=== PATIENT | male | born 1960 | race Caucasian/White ===

== ENCOUNTER 2016-10-26 09:45 | Inpatient (IN) | payer OTHER ==
[2016-10-26 10:08] VITALS: BMI 21.8
--- NOTE | 2016-10-26 12:57 | HP ---
CIWA Score - CIWA Score Nausea/Vomitin Muscle Tremors: 4-Moderate,w/Arms Extend Anxiety: 4-Mod. Anxious/Guarded Agitation: 3 Paroxysmal Sweats: No Perspiration Orientation: 0-Oriented Tacttile Disturbances: 0-None Auditory Disturbances: 0-None Visual Disturbances: 0-None Headache: 0-None Present CIWA-Ar Total Score: 14 Admission ROS BHS - HPI Chief Complaint: WITHDRAWAL SX. Allergies/Adverse Reactions: Allergies Allergy/AdvReac Type Severity Reaction Status Date / Time No Known Allergies Allergy Verified 10/26/16 11:11 History of Present Illness: 56 Y/O MAN WITH A LONG HX. OF ALCOHOLISM IS ADMITTED FOR DETOX. PT. DENIES PREVIOUS DETOX,REPORTS 1 YR. SOBER. Exam Limitations: No Limitations - Ebola screening Have you traveled outside of the country in the last 21 days: No (N) Have you had contact with anyone from an Ebola affected area: No Have you been sick,other than usual withdrawal symptoms: No Do you have a fever: No - Review of Systems Constitutional: No Symptoms Reported EENT: reports: No Symptoms Reported Respiratory: reports: Productive cough Cardiac: reports: No Symptoms Reported GI: reports: Nausea, Vomiting (LAST NIGHT) : reports: Frequency Musculoskeletal: reports: Back Pain Integumentary: reports: No Symptoms Reported Neuro: reports: Tremors Endocrine: reports: No Symptoms Reported Hematology: reports: No Symptoms Reported Psychiatric: reports: No Sypmtoms Reported Other Systems: Reviewed and Negative Patient History - Patient Medical History Hx Anemia: No Hx Asthma: No Hx Chronic Obstructive Pulmonary Disease (COPD): No Hx Cancer: No Hx Cardiac Disorders: No Hx Congestive Heart Failure: No Hx Hypertension: No Hx Hypercholesterolemia: No Hx Pacemaker: No HX Cerebrovascular Accident: No Hx Seizures: No Hx Dementia: No Hx Diabetes: No Hx Gastrointestinal Disorders: No Hx Liver Disease: No Hx Genitourinary Disorders: No Hx Sexually Transmitted Disorders: No Hx Renal Disease (ESRD): No Hx Thyroid Disease: No Hx Human Immunodeficiency Virus (HIV): No Hx Hepatitis C: No Hx Depression: No Hx Suicide Attempt: Yes (SUMMER 2015,OD) Hx Bipolar Disorder: Yes Hx Schizophrenia: No - Patient Surgical History Past Surgical History: No Hx Neurologic Surgery: No Hx Cataract Extraction: No Hx Cardiac Surgery: No Hx Lung Surgery: No Hx Breast Surgery: No Hx Breast Biopsy: No Hx Abdominal Surgery: No Hx Appendectomy: No Hx Cholecystectomy: No Hx Genitourinary Surgery: No Hx Section: No Hx Orthopedic Surgery: No Anesthesia Reaction: No - PPD History Previous Implant?: Yes Documented Results: Negative w/o proof Implanted On Prior [facility] Admission?: No PPD to be Administered?: Yes - Smoking Cessation Smoking history: Never smoked Have you smoked in the past 12 months: No - Substance & Tx. History Hx Alcohol Use: Yes Hx Substance Use: No Substance Use Type: Alcohol Hx Substance Use Treatment: No - Substances Abused Alcohol Route: Oral Frequency: Daily Amount used: BEER 1-2(6 PACKS) Age of first use: 17 Date of Last Use: 10/26/16 Family Disease History - Family Disease History Family Disease History: Other: Father (ALCOHOLISM) Admission Physical Exam [facility] - Vital Signs Vital Signs: Vital Signs - 24 hr 10/26/16 10:06 Temperature 97.2 F L Pulse Rate 105 H Respiratory 18 Rate Blood Pressure 126/79 - Physical General Appearance: Yes: Alcohol on Breath, Tremorous, Irritable, Sweating, Anxious HEENTM: Yes: Rhinorrhea Respiratory: Yes: Chest Non-Tender, Lungs Clear, Normal Breath Sounds Neck: Yes: Supple Breast: Yes: Breast Exam Deferred Cardiology: Yes: Regular Rhythm, Regular Rate, S1, S2 Abdominal: Yes: Normal Bowel Sounds, Non Tender, Flat, Soft Genitourinary: Yes: Frequency Back: Yes: Within Normal Limits Musculoskeletal: Yes: Back pain Extremities: Yes: Tremors Neurological: Yes: Fully Oriented, Alert Integumentary: Yes: Within Normal Limits Lymphatic: Yes: Within Normal Limits - Diagnostic (1) Alcohol dependence with uncomplicated withdrawal Current Visit: Yes Status: Acute Cleared for Admission [facility] - Detox or Rehab [facility] Level of Care: Medically Managed Detox Regimen/Protocol: Librium [facility] Breath Alcohol Content Breath Alcohol Content: 0.064 Urine Drug Screen - Results Drug Screen Negative: Yes
[2016-10-26] MEDS ORDERED: LOPERAMIDE HCL 2 MG CAPSULE PO PRN (13:07)
[2016-10-26] MEDS ORDERED: MENTHOL/PHENOL 1 EACH UD MM PRN (13:07)
[2016-10-26] MEDS ORDERED: hydrOXYzine PAMOATE 50 MG CAPSULE (FP) PO PRN (13:07)
[2016-10-26] MEDS ORDERED: MAGNESIUM CITRATE 300 ML BOTTLE PO PRN (13:07)
[2016-10-26] MEDS ORDERED: MAGNESIUM HYDROX 2400MG/30ML ORAL SUSPENSION 30 ML CUP PO PRN (13:07)
[2016-10-26] MEDS ORDERED: MAG HYDROX/AL HYDROX/SIMETH 30 ML UNIT-DOSE CUP PO PRN (13:07)
[2016-10-26] MEDS ORDERED: chlordiazePOXIDE HCL 25 MG CAPSULE PO PRN (13:07)
[2016-10-26] MEDS ORDERED: P-EPHED 60MG/TRIPROLIDI 2.5MG TABLET PO PRN (13:07)
[2016-10-26] MEDS ORDERED: ACETAMINOPHEN 325 MG TABLET (FP) PO PRN (13:07)
[2016-10-26] MEDS ORDERED: diphenhydrAMINE HCL 50 MG CAPSULE PO PRN (13:07)
[2016-10-26] MEDS ORDERED: chlordiazePOXIDE HCL 25 MG CAPSULE PO ONE (13:45)
[2016-10-26 15:05] LABS: URINE APPEARANCE CLEAR; URINE BILIRUBIN NEGATIVE (NEGATIVE); URINE BLOOD NEGATIVE (NEGATIVE); URINE COLOR LTYELLOW; URINE GLUCOSE (UA) 1+ (NEGATIVE); URINE KETONE NEGATIVE (NEGATIVE); URINE LEUK ESTERASE NEGATIVE (NEGATIVE); URINE NITRITE NEGATIVE (NEGATIVE); URINE PROTEIN NEGATIVE (NEGATIVE); URINE UROBILINOGEN NEGATIVE E.U./dl (0.2-1.0)
[2016-10-26] MEDS: chlordiazePOXIDE HCL 25 MG CAPSULE PO SCH ×2 (17:16→22:18)
[2016-10-26] MEDS: ONDANSETRON *ODT* 4 MG TABLET SL PRN (17:52)
[2016-10-26] MEDS: THIAMINE HCL 100 MG TABLET (FP) PO SCH (22:18)
[2016-10-26] MEDS: IBUPROFEN 400 MG TABLET (FP) PO PRN (22:19)
[2016-10-27] MEDS: chlordiazePOXIDE HCL 25 MG CAPSULE PO SCH ×4 (05:34→22:13)
--- NOTE | 2016-10-27 10:21 | PN ---
S CIWA - CIWA Score Nausea/Vomitin-No Nausea/No Vomiting Muscle Tremors: 4-Moderate,w/Arms Extend Anxiety: 4-Mod. Anxious/Guarded Agitation: 4-Moderately Restless Paroxysmal Sweats: 1-Minimal Palms Moist Orientation: 0-Oriented Tacttile Disturbances: 3-Moderate Itch/Numb/Burn Auditory Disturbances: 0-None Visual Disturbances: 0-None Headache: 0-None Present CIWA-Ar Total Score: 16 BHS Progress Note (SOAP) Subjective: ANXIETY,SWEATS/TREMORS. Objective: 10/27/16 10:20 Vital Signs Temperature 96.8 F L 10/27/16 09:31 Pulse Rate 88 10/27/16 09:31 Respiratory Rate 18 10/27/16 09:31 Blood Pressure 124/82 10/27/16 09:31 O2 Sat by Pulse Oximetry (%) Laboratory Last Values Urine Color Ltyellow 10/26/16 14:00 Urine Appearance Clear 10/26/16 14:00 Urine pH 6.0 (5.0-8.0) 10/26/16 14:00 Ur Specific [place] 1.003 (1.001-1.035) 10/26/16 14:00 Urine Protein Negative (NEGATIVE) 10/26/16 14:00 Urine Glucose (UA) 1+ (NEGATIVE) H 10/26/16 14:00 Urine Ketones Negative (NEGATIVE) 10/26/16 14:00 Urine Blood Negative (NEGATIVE) 10/26/16 14:00 Urine Nitrite Negative (NEGATIVE) 10/26/16 14:00 Urine Bilirubin Negative (NEGATIVE) 10/26/16 14:00 Urine Urobilinogen Negative E.U./dl (0.2-1.0) 10/26/16 14:00 Ur Leukocyte Esterase Negative (NEGATIVE) 10/26/16 14:00 Assessment: 10/27/16 10:20 WITHDRAWAL SX Plan: CONTINUE DETOX
[2016-10-27] MEDS: PRENATAL VITAMINS W/ FOLIC ACID TABLET (FP) PO SCH (10:22)
[2016-10-27] MEDS: IBUPROFEN 400 MG TABLET (FP) PO PRN ×2 (10:23→19:39)
[2016-10-27 10:26] LABS: MCH 38.4 pg (25.7-33.7); MEAN PLT VOLUME 8.1 fl (7.5-11.1); PLATELET COUNT 141 K/MM3 (134-434); RDW 12.3 % (11.9-15.9); WHITE BLOOD COUNT 6.6 K/mm3 (4.0-10.0)
--- NOTE | 2016-10-27 10:28 | CONSULT ---
[facility] Psychiatric Consult - Data Date of interview: 10/27/16 Admission source: [facility] Identifying data: This is the first admission to [address] [place] [address] for this 56 years old male father of 19 yo daughter,resides [place] Hotel, unemployed,lost his job 4 years ago. Substance Abuse History: Patient reports drinking since 17 years old,reports 1 year of abstinence.Currently heavy drinking (6 packs of beer,Tequila). Medical History: unremarkable Psychiatric History: Reports psychiatric history since 3 years ago ,when he started to see Psych Nurse Practioner.He was dx with Bipolar II Disorder.He was placed on lamictal 25 mg po 2 tab am,Trazodone 150 mg po hs and Neurontin 300 mg po 2 tab hs and Risperidone ),5 mg po bid.Reports one suicidal attempt (DOD) last summer under influence of alcohol.patient was in ER,d/c without meds and follow up.Sees private psychiatrist at [facility],still on the same medications. Physical/Sexual Abuse/Trauma History: denies Mental Status Exam - Mental Status Exam Alert and Oriented to: Time, Place, Person Cognitive Function: Grossly Intact Patient Appearance: Well Groomed Mood: Depressed, Sad Affect: Mood Congruent Patient Behavior: Cooperative Speech Pattern: Clear Voice Loudness: Normal Thought Process: Goal Oriented Thought Disorder: Not Present Hallucinations: Denies Suicidal Ideation: Denies Homicidal Ideation: Denies Insight/Judgement: Fair Sleep: Fair Appetite: Good Muscle strength/Tone: Normal Gait/Station: Normal Psychiatric Findings - Problem List ([place] 1, 2,3) (1) Alcohol dependence with uncomplicated withdrawal Current Visit: Yes Status: Chronic (2) Bipolar II disorder Current Visit: Yes Status: Acute - Initial Treatment Plan Initial Treatment Plan: Continue current medications as per plan.
--- NOTE | 2016-10-27 10:47 | PN ---
[facility] CIWA - CIWA Score Nausea/Vomitin Muscle Tremors: 4-Moderate,w/Arms Extend Anxiety: 4-Mod. Anxious/Guarded Agitation: 4-Moderately Restless Paroxysmal Sweats: 1-Minimal Palms Moist Orientation: 0-Oriented Tacttile Disturbances: 3-Moderate Itch/Numb/Burn Auditory Disturbances: 0-None Visual Disturbances: 0-None Headache: 0-None Present CIWA-Ar Total Score: 21 BHS Progress Note (SOAP) Subjective: NAUSEA/VOMITING,TREMORS,ANXIETY. Objective: 10/27/16 10:47 Vital Signs Temperature 96.8 F L 10/27/16 09:31 Pulse Rate 88 10/27/16 09:31 Respiratory Rate 18 10/27/16 09:31 Blood Pressure 124/82 10/27/16 09:31 O2 Sat by Pulse Oximetry (%) Laboratory Last Values WBC 6.6 K/mm3 (4.0-10.0) 10/27/16 06:30 RBC 3.19 M/mm3 (4.00-5.60) L 10/27/16 06:30 Hgb 12.3 GM/dL (11.7-16.9) 10/27/16 06:30 Hct 36.1 % (35.4-49) 10/27/16 06:30 MCV 113.0 fl (80-96) H 10/27/16 06:30 MCHC 34.0 g/dl (32.0-35.9) 10/27/16 06:30 RDW 12.3 % (11.9-15.9) 10/27/16 06:30 Plt Count 141 K/MM3 (134-434) 10/27/16 06:30 MPV 8.1 fl (7.5-11.1) 10/27/16 06:30 Sodium 139 mmol/L (136-145) 10/27/16 06:30 Potassium 3.5 mmol/L (3.5-5.1) 10/27/16 06:30 Chloride 101 mmol/L (98-107) 10/27/16 06:30 Urine Color Ltyellow 10/26/16 14:00 Urine Appearance Clear 10/26/16 14:00 Urine pH 6.0 (5.0-8.0) 10/26/16 14:00 Ur Specific [place] 1.003 (1.001-1.035) 10/26/16 14:00 Urine Protein Negative (NEGATIVE) 10/26/16 14:00 Urine Glucose (UA) 1+ (NEGATIVE) H 10/26/16 14:00 Urine Ketones Negative (NEGATIVE) 10/26/16 14:00 Urine Blood Negative (NEGATIVE) 10/26/16 14:00 Urine Nitrite Negative (NEGATIVE) 10/26/16 14:00 Urine Bilirubin Negative (NEGATIVE) 10/26/16 14:00 Urine Urobilinogen Negative E.U./dl (0.2-1.0) 10/26/16 14:00 Ur Leukocyte Esterase Negative (NEGATIVE) 10/26/16 14:00 OTHR LAB RESULTS PENDING Assessment: 10/27/16 10:47 WITHDRAWAL SX Plan: CONTINUE DETOX
[2016-10-27 10:53] LABS: ALBUMIN 3.4 g/dl (3.4-5.0); ALK PHOS 72 U/L (45-117); ANION GAP 8 (8-16); BILIRUBIN,TOTAL 1.1 mg/dL (0.2-1.0); CALCIUM 8.9 mg/dL (8.5-10.1); CO2 30 mmol/L (21-32); CREATININE 0.7 mg/dL (0.7-1.3); GLUCOSE,RANDOM 86 mg/dL (74-106); SGOT/AST 29 U/L (15-37); SGPT/ALT 29 U/L (12-78); TOT PROT 6.2 g/dl (6.4-8.2)
[2016-10-27] MEDS: lamoTRIgine 25 MG TABLET PO SCH (12:00)
--- NOTE | 2016-10-27 16:25 | EKG ---
Test Reason : Blood Pressure : / mmHG Vent. Rate : 090 BPM Atrial Rate : 090 BPM P-R Int : 146 ms QRS Dur : 100 ms QT Int : 374 ms P-R-T Axes : 034 032 032 degrees QTc Int : 457 ms NORMAL SINUS RHYTHM NORMAL ECG NO PREVIOUS ECGS AVAILABLE Confirmed by FOREIGN ROMO MD ([id number]) on 10/27/2016 4:24:42 PM Referred By: Confirmed By:FOREIGN ROMO MD
[2016-10-27] MEDS ORDERED: GABAPENTIN 300 MG CAPSULE (FP) PO SCH ×2 (22:00)
[2016-10-27] MEDS: GABAPENTIN 300 MG CAPSULE (FP) PO SCH (22:13)
[2016-10-27] MEDS: risperiDONE 1 MG TABLET (FP) PO SCH (22:13)
[2016-10-27] MEDS: THIAMINE HCL 100 MG TABLET (FP) PO SCH (22:13)
[2016-10-27] MEDS: traZODone HCL 50 MG TABLET (FP) PO SCH (22:14)
[2016-10-28] MEDS: chlordiazePOXIDE HCL 25 MG CAPSULE PO SCH ×2 (05:39→10:26)
--- NOTE | 2016-10-28 10:23 | PN ---
BHS Progress Note (SOAP) Subjective: ANXIETY,TREMORS, SWEATS, INTERMITTENT SLEEP Objective: 10/28/16 10:22 Vital Signs Temperature 95.3 F L 10/28/16 10:21 Pulse Rate 100 H 10/28/16 10:21 Respiratory Rate 20 10/28/16 10:21 Blood Pressure 115/75 10/28/16 10:21 O2 Sat by Pulse Oximetry (%) Assessment: 10/28/16 10:23 WITHDRAWAL SX Plan: CONTINUE DETOX
[2016-10-28] MEDS: lamoTRIgine 25 MG TABLET PO SCH (10:26)
[2016-10-28] MEDS: PRENATAL VITAMINS W/ FOLIC ACID TABLET (FP) PO SCH (10:26)
[2016-10-28] MEDS: guaiFENesin/D-METHORPHAN HB 10 ML UNIT-DOSE CUPS PO PRN ×3 (10:27→22:35)
[2016-10-28] MEDS: chlordiazePOXIDE 5 MG CAPSULE PO SCH ×2 (17:26→22:15)
[2016-10-28] MEDS: IBUPROFEN 400 MG TABLET (FP) PO PRN (17:28)
[2016-10-28] MEDS: THIAMINE HCL 100 MG TABLET (FP) PO SCH (22:15)
[2016-10-28] MEDS: GABAPENTIN 300 MG CAPSULE (FP) PO SCH (22:15)
[2016-10-28] MEDS: risperiDONE 1 MG TABLET (FP) PO SCH (22:16)
[2016-10-28] MEDS: traZODone HCL 50 MG TABLET (FP) PO SCH (22:16)
[2016-10-29] MEDS: ONDANSETRON *ODT* 4 MG TABLET SL PRN ×2 (00:20→21:19)
[2016-10-29] MEDS: chlordiazePOXIDE 5 MG CAPSULE PO SCH ×2 (06:03→10:37)
[2016-10-29] MEDS: PRENATAL VITAMINS W/ FOLIC ACID TABLET (FP) PO SCH (10:37)
[2016-10-29] MEDS: lamoTRIgine 25 MG TABLET PO SCH (10:37)
--- NOTE | 2016-10-29 10:41 | PN ---
BHS Progress Note (SOAP) Subjective: ANXIETY,COUGHING WITH YELLOWISH SPUTUM NOT RESOLVING. Objective: 10/29/16 10:40 Vital Signs Temperature 96.9 F L 10/29/16 10:17 Pulse Rate 104 H 10/29/16 10:17 Respiratory Rate 18 10/29/16 10:17 Blood Pressure 101/73 10/29/16 10:17 O2 Sat by Pulse Oximetry (%) Laboratory Last Values WBC 6.6 K/mm3 (4.0-10.0) 10/27/16 06:30 RBC 3.19 M/mm3 (4.00-5.60) L 10/27/16 06:30 Hgb 12.3 GM/dL (11.7-16.9) 10/27/16 06:30 Hct 36.1 % (35.4-49) 10/27/16 06:30 MCV 113.0 fl (80-96) H 10/27/16 06:30 MCHC 34.0 g/dl (32.0-35.9) 10/27/16 06:30 RDW 12.3 % (11.9-15.9) 10/27/16 06:30 Plt Count 141 K/MM3 (134-434) 10/27/16 06:30 MPV 8.1 fl (7.5-11.1) 10/27/16 06:30 Sodium 139 mmol/L (136-145) 10/27/16 06:30 Potassium 3.5 mmol/L (3.5-5.1) 10/27/16 06:30 Chloride 101 mmol/L (98-107) 10/27/16 06:30 Carbon Dioxide 30 mmol/L (21-32) 10/27/16 06:30 Anion Gap 8 (8-16) 10/27/16 06:30 BUN 4 mg/dL (7-18) L 10/27/16 06:30 Creatinine 0.7 mg/dL (0.7-1.3) 10/27/16 06:30 Creat Clearance w eGFR > 60 (>60) 10/27/16 06:30 Random Glucose 86 mg/dL (74-106) 10/27/16 06:30 Calcium 8.9 mg/dL (8.5-10.1) 10/27/16 06:30 Total Bilirubin 1.1 mg/dL (0.2-1.0) H 10/27/16 06:30 AST 29 U/L (15-37) 10/27/16 06:30 ALT 29 U/L (12-78) 10/27/16 06:30 Alkaline Phosphatase 72 U/L (45-117) 10/27/16 06:30 Total Protein 6.2 g/dl (6.4-8.2) L 10/27/16 06:30 Albumin 3.4 g/dl (3.4-5.0) 10/27/16 06:30 Urine Color Ltyellow 10/26/16 14:00 Urine Appearance Clear 10/26/16 14:00 Urine pH 6.0 (5.0-8.0) 10/26/16 14:00 Ur Specific [place] 1.003 (1.001-1.035) 10/26/16 14:00 Urine Protein Negative (NEGATIVE) 10/26/16 14:00 Urine Glucose (UA) 1+ (NEGATIVE) H 10/26/16 14:00 Urine Ketones Negative (NEGATIVE) 10/26/16 14:00 Urine Blood Negative (NEGATIVE) 10/26/16 14:00 Urine Nitrite Negative (NEGATIVE) 10/26/16 14:00 Urine Bilirubin Negative (NEGATIVE) 10/26/16 14:00 Urine Urobilinogen Negative E.U./dl (0.2-1.0) 10/26/16 14:00 Ur Leukocyte Esterase Negative (NEGATIVE) 10/26/16 14:00 RPR Titer Nonreactive (NONREACTIVE) 10/27/16 06:30 LUNGS: SLIGHT CONGESTION--RHONCHI Assessment: 10/29/16 10:41 WITHDRAWAL SX Plan: CONTINUE DETOX
[2016-10-29] MEDS: ALBUTEROL SO4 2.5/IPRATROPIUM 0.5 INH SOL 3 ML VIAL.NEB. NEB SCH ×2 (14:59→22:30)
[2016-10-29] MEDS: AMOX TR/POT CLAV 875MG/125MG TABLETS (FP) PO SCH (17:24)
[2016-10-29] MEDS: chlordiazePOXIDE HCL 10 MG CAPSULE PO SCH ×2 (17:24→22:31)
[2016-10-29] MEDS: THIAMINE HCL 100 MG TABLET (FP) PO SCH (22:31)
[2016-10-29] MEDS: GABAPENTIN 300 MG CAPSULE (FP) PO SCH (22:32)
[2016-10-29] MEDS: risperiDONE 1 MG TABLET (FP) PO SCH (22:32)
[2016-10-29] MEDS: traZODone HCL 50 MG TABLET (FP) PO SCH (22:32)
[2016-10-30] MEDS: chlordiazePOXIDE HCL 10 MG CAPSULE PO SCH ×2 (05:32→10:50)
[2016-10-30] MEDS: AMOX TR/POT CLAV 875MG/125MG TABLETS (FP) PO SCH (07:31)
[2016-10-30] MEDS: ALBUTEROL SO4 2.5/IPRATROPIUM 0.5 INH SOL 3 ML VIAL.NEB. NEB SCH (07:31)
[2016-10-30 09:33] VITALS: BP 103/70; PULSE 91; TEMP 96
--- NOTE | 2016-10-30 10:06 | DS ---
[facility] Detox Discharge Summary Admission Date: 10/26/16 Discharge Date: 10/30/16 - History Present History: Alcohol Dependence Additional Comments: COMPLETED DETOX. TO BE PICKED UP BY [facility]. Pertinent Past History: BIPOLAR DISORDER - Physical Exam Results Vital Signs: Vital Signs Temperature 96.0 F L 10/30/16 09:32 Pulse Rate 91 H 10/30/16 09:32 Respiratory Rate 20 10/30/16 09:32 Blood Pressure 103/70 10/30/16 09:32 O2 Sat by Pulse Oximetry (%) Pertinent Admission Physical Exam Findings: WITHDRAWAL SX URI COUGHING/SPUTUM/RHONCHI CXR R/O PNEUMONIA NEGATIVE RESULT Laboratory Last Values WBC 6.6 K/mm3 (4.0-10.0) 10/27/16 06:30 RBC 3.19 M/mm3 (4.00-5.60) L 10/27/16 06:30 Hgb 12.3 GM/dL (11.7-16.9) 10/27/16 06:30 Hct 36.1 % (35.4-49) 10/27/16 06:30 MCV 113.0 fl (80-96) H 10/27/16 06:30 MCHC 34.0 g/dl (32.0-35.9) 10/27/16 06:30 RDW 12.3 % (11.9-15.9) 10/27/16 06:30 Plt Count 141 K/MM3 (134-434) 10/27/16 06:30 MPV 8.1 fl (7.5-11.1) 10/27/16 06:30 Sodium 139 mmol/L (136-145) 10/27/16 06:30 Potassium 3.5 mmol/L (3.5-5.1) 10/27/16 06:30 Chloride 101 mmol/L (98-107) 10/27/16 06:30 Carbon Dioxide 30 mmol/L (21-32) 10/27/16 06:30 Anion Gap 8 (8-16) 10/27/16 06:30 BUN 4 mg/dL (7-18) L 10/27/16 06:30 Creatinine 0.7 mg/dL (0.7-1.3) 10/27/16 06:30 Creat Clearance w eGFR > 60 (>60) 10/27/16 06:30 Random Glucose 86 mg/dL (74-106) 10/27/16 06:30 Calcium 8.9 mg/dL (8.5-10.1) 10/27/16 06:30 Total Bilirubin 1.1 mg/dL (0.2-1.0) H 10/27/16 06:30 AST 29 U/L (15-37) 10/27/16 06:30 ALT 29 U/L (12-78) 10/27/16 06:30 Alkaline Phosphatase 72 U/L (45-117) 10/27/16 06:30 Total Protein 6.2 g/dl (6.4-8.2) L 10/27/16 06:30 Albumin 3.4 g/dl (3.4-5.0) 10/27/16 06:30 Urine Color Ltyellow 10/26/16 14:00 Urine Appearance Clear 10/26/16 14:00 Urine pH 6.0 (5.0-8.0) 10/26/16 14:00 Ur Specific [place] 1.003 (1.001-1.035) 10/26/16 14:00 Urine Protein Negative (NEGATIVE) 10/26/16 14:00 Urine Glucose (UA) 1+ (NEGATIVE) H 10/26/16 14:00 Urine Ketones Negative (NEGATIVE) 10/26/16 14:00 Urine Blood Negative (NEGATIVE) 10/26/16 14:00 Urine Nitrite Negative (NEGATIVE) 10/26/16 14:00 Urine Bilirubin Negative (NEGATIVE) 10/26/16 14:00 Urine Urobilinogen Negative E.U./dl (0.2-1.0) 10/26/16 14:00 Ur Leukocyte Esterase Negative (NEGATIVE) 10/26/16 14:00 RPR Titer Nonreactive (NONREACTIVE) 10/27/16 06:30 - Treatment Hospital Course: Detox Protocol Followed, Detoxed Safely, Responded well, Discharged Condition Good, Rehab Referral Accepted Patient has Accepted a Rehab Referral to: [facility] - Medication Discharge Medications: Ambulatory Orders Gabapentin [Neurontin] 600 mg PO HS 10/26/16 Lamotrigine [Lamictal] 50 mg PO DAILY 10/26/16 Risperidone [Risperdal] 10 mg PO HS 10/26/16 Trazodone HCl [Desyrel -] 150 mg PO HS 10/26/16 Gabapentin [Neurontin -] 300 mg PO HS #60 capsule 10/27/16 Lamotrigine [Lamictal -] 50 mg PO DAILY #60 tablet 10/27/16 Risperidone [Risperdal -] 1 mg PO HS #30 tablet 10/27/16 Trazodone HCl [Desyrel -] 150 mg PO HS #90 tablet 10/27/16 Amoxicillin - [Amoxicillin 500mg Capsule -] 500 mg PO BID #10 capsule 10/30/16 - Diagnosis (1) Alcohol dependence with uncomplicated withdrawal Current Visit: Yes Status: Acute (2) Bronchitis, acute Current Visit: Yes Status: Acute Qualifiers: Bronchitis organism: unspecified organism Qualified Code(s): J20.9 - Acute bronchitis, unspecified (3) Bipolar II disorder Current Visit: Yes Status: Acute - AMA Did Patient Leave Against Medical Advice: No
[2016-10-30] MEDS: PRENATAL VITAMINS W/ FOLIC ACID TABLET (FP) PO SCH (10:48)
[2016-10-30] MEDS: lamoTRIgine 25 MG TABLET PO SCH (10:48)
== END 2016-10-30 12:14 | disposition home or self-care (01) | DRG 775 ==
LOC: YASAS 09:45 → Y3N 11:59
PROVIDERS: ADMIT Internal Medicine; ATTEND Internal Medicine
PROC: HZ2ZZZZ Detoxification Services for Substance Abuse Treatment (ICD-10-PCS; principal; 2016-10-26)
DX: F10.230 Alcohol dependence with withdrawal, uncomplicated (principal); F31.81 Bipolar II disorder; J20.9 Acute bronchitis, unspecified; Z91.5 Personal history of self-harm; Z59.0 Homelessness
CPT/HCPCS: 36415; 71020-TC; 80053; 81003; 85027; 86593; 93005; 93010; 94640; J2794

== ENCOUNTER 2017-02-18 08:04 | Day surgery (SDC) | payer OTHER ==
[2017-02-15 12:56] VITALS: BMI 26.2
[2017-02-18] MEDS ORDERED: PROPOFOL 20 ML ONE ×2 (08:45)
[2017-02-18 10:30] VITALS: TEMP 98
[2017-02-18 10:31] VITALS: BP 109/69; PULSE 60
--- NOTE | 2017-02-19 16:04 | PATH ---
Surgical Pathology Report Patient Name: FRANCESCA BOWMAN [facility]. Rec. #: [id number] /Age/Gender: 1960 (Age: 56) / M Account: [id number] Location: [facility] Taken: 02/18/2017 Received: 02/18/2017 Reported: 02/19/2017 Physicians: Júnior Blum M.D. Specimen(s) Received A: BX DUODENUM B: BX ANTRUM C: BX DISTAL ESOPHAGUS D: BX CECUM E: BX TERMINAL ILEUM F: BX RIGHT COLON G: BX COLON TRANSVERSE H: BX LEFT COLON I: BX SIGMOID J: BX RECTUM Clinical History GERD, GI bleed, history of ulcerative colitis Gastritis, r/o celiac disease, r/o Saenz's, r/o colitis, r/o dysplasia Final Diagnosis A. duodenum, biopsy: Duodenal mucosa with no pathologic findings. Note: Features suggestive of celiac disease are not identified in this biopsy. B. antrum, biopsy: Severe chronic active gastritis. Immunostain is positive for H pylori organisms. C. distal esophagus, biopsy: Severe acute esophagitis with surface erosion/ulceration. No columnar epithelium/intestinal metaplasia is identified. PAS stain is negative for fungal organisms. D. cecum, biopsy: Colonic mucosa with no pathologic findings. Negative for colitis and dysplasia. E. terminal ileum, biopsy: ileal MUCOSA with no pathologic findings. Negative for ileitis and dysplasia. F. Right colon, biopsy: Colonic mucosa with no pathologic findings. Negative for colitis and dysplasia. G. transverse colon, biopsy: Colonic mucosa with no pathologic findings. Negative for colitis and dysplasia. H. left colon, biopsy: Colonic mucosa with no pathologic findings. Negative for colitis and dysplasia. I. sigmoid, biopsy: Colonic mucosa with no pathologic findings. Negative for colitis and dysplasia. J. Rectum, biopsy: RECTAL/Colonic mucosa with no pathologic findings. Negative for PROCTITIS/colitis and dysplasia. Electronically Signed Letty Clark M.D. Gross Description A. Received in formalin, labeled "duodenum" are 2 [place]rick[place], irregular portions of soft tissue averaging 0.3 cm. in greatest dimension. The specimens are submitted in toto in one cassette. B. Received in formalin, labeled "antrum" are 2 [place], irregular portions of soft tissue measuring 0.4 and 0.5 cm. in greatest dimension. The specimens are submitted in toto in one cassette. C. Received in formalin, labeled "distal esophagus" is a strickland, irregular portion of soft tissue measuring 0.2 cm. in greatest dimension. The specimen is submitted in toto in one cassette. D. Received in formalin, labeled "cecum" are 2 [place], irregular portions of soft tissue averaging 0.2 cm. in greatest dimension. The specimens are submitted in toto in one cassette. E. Received in formalin, labeled "terminal ileum" are 2 [place]rick[place], irregular portions of soft tissue measuring 0.2 and 0.4 cm. in greatest dimension. The specimens are submitted in toto in one cassette. F. Received in formalin, labeled "right colon" are 3 [place]rick[place], irregular portions of soft tissue ranging from 0.2-0.3 cm. in greatest dimension. The specimens are submitted in toto in one cassette. G. Received in formalin, labeled "transverse" are 2 [place], irregular portions of soft tissue averaging 0.2 cm. in greatest dimension. The specimens are submitted in toto in one cassette. H. Received in formalin, labeled "left colon" are 4 [place]rick[place], irregular portions of soft tissue ranging from 0.1-0.4 cm. in greatest dimension. The specimens are submitted in toto in one cassette. I. Received in formalin, labeled "sigmoid" are 4 [place], irregular portions of soft tissue ranging from 0.1-0.4 cm. in greatest dimension. The specimens are submitted in toto in one cassette. J. Received in formalin, labeled "rectum" are 3 [place]rick[place], irregular portions of soft tissue averaging 0.2 cm. in greatest dimension. The specimens are submitted in toto in one cassette. 02/18/2017 [facility]02/18/2017
== END 2017-02-18 10:15 | disposition home or self-care (01) ==
LOC: FASU-ENDO 08:04
PROVIDERS: ATTEND Internal Medicine Gastroenterology
PROC: 0DB48ZX Excision of Esophagogastric Junction, Via Natural or Artificial Opening Endoscopic, Diagnostic (ICD-10-PCS; 2017-02-18)
PROC: 0DBK8ZX Excision of Ascending Colon, Via Natural or Artificial Opening Endoscopic, Diagnostic (ICD-10-PCS; 2017-02-18)
PROC: 0DBL8ZX Excision of Transverse Colon, Via Natural or Artificial Opening Endoscopic, Diagnostic (ICD-10-PCS; 2017-02-18)
PROC: 0DBP8ZX Excision of Rectum, Via Natural or Artificial Opening Endoscopic, Diagnostic (ICD-10-PCS; 2017-02-18)
PROC: 0DBN8ZX Excision of Sigmoid Colon, Via Natural or Artificial Opening Endoscopic, Diagnostic (ICD-10-PCS; 2017-02-18)
PROC: 0DBB8ZX Excision of Ileum, Via Natural or Artificial Opening Endoscopic, Diagnostic (ICD-10-PCS; 2017-02-18)
PROC: 0DBM8ZX Excision of Descending Colon, Via Natural or Artificial Opening Endoscopic, Diagnostic (ICD-10-PCS; 2017-02-18)
PROC: 0DBH8ZX Excision of Cecum, Via Natural or Artificial Opening Endoscopic, Diagnostic (ICD-10-PCS; 2017-02-18)
PROC: 0DB98ZX Excision of Duodenum, Via Natural or Artificial Opening Endoscopic, Diagnostic (ICD-10-PCS; principal; 2017-02-18 09:02)
PROC: 0DB68ZX Excision of Stomach, Via Natural or Artificial Opening Endoscopic, Diagnostic (ICD-10-PCS; 2017-02-18 09:02)
DX: K29.50 Unspecified chronic gastritis without bleeding (principal); K22.10 Ulcer of esophagus without bleeding; Z87.19 Personal history of other diseases of the digestive system
CPT/HCPCS: 88305-TC; 88312-TC; 88342-TC

== ENCOUNTER 2019-04-27 07:25 | Day surgery (SDC) | payer OTHER ==
[2019-04-24 14:57] VITALS: BMI 24.7
[2019-04-27] MEDS ORDERED: PROPOFOL 20 ML ONE ×2 (08:59)
[2019-04-27 09:31] VITALS: TEMP 98.2
[2019-04-27 10:21] VITALS: BP 126/75; PULSE 72
--- NOTE | 2019-05-01 16:23 | PATH ---
Surgical Pathology Report Patient Name: FRANCESCA BOWMAN [facility]. Rec. #: [id number] /Age/Gender: 1960 (Age: 58) / M Account: [id number] [facility] Taken: 04/27/2019 Received: 04/27/2019 Reported: 05/01/2019 Physicians: Júnior Blum M.D. Specimen(s) Received A: RANDOM CECUM B: RANDOM RIGHT COLON C: RANDOM TRANSVERSE COLON D: RANDOM LEFT COLON E: RANDOM SIGMOID COLON F: RANDOM RECTOSIGMOID COLON G: RANDOM RECTUM Clinical History Ulcerative colitis Postoperative diagnosis: Small external hemorrhoids, diverticulosis Final Diagnosis A. CECUM, RANDOM BIOPSY: COLONIC MUCOSA WITH NO SIGNIFICANT PATHOLOGIC FINDINGS. NEGATIVE FOR COLITIS. B. RIGHT COLON, RANDOM BIOPSY: COLONIC MUCOSA WITH NO SIGNIFICANT PATHOLOGIC FINDINGS. NEGATIVE FOR COLITIS. C. TRANSVERSE COLON, RANDOM BIOPSY: COLONIC MUCOSA WITH NO SIGNIFICANT PATHOLOGIC FINDINGS. NEGATIVE FOR COLITIS. D. LEFT COLON, RANDOM BIOPSY: COLONIC MUCOSA WITH NO SIGNIFICANT PATHOLOGIC FINDINGS. NEGATIVE FOR COLITIS. E. SIGMOID COLON, RANDOM BIOPSY: COLONIC MUCOSA WITH NO SIGNIFICANT PATHOLOGIC FINDINGS. NEGATIVE FOR COLITIS. F. RECTOSIGMOID, RANDOM BIOPSY: COLONIC MUCOSA WITH NO SIGNIFICANT PATHOLOGIC FINDINGS. NEGATIVE FOR COLITIS. G. RECTUM, RANDOM, BIOPSY: COLONIC MUCOSA WITH NO SIGNIFICANT PATHOLOGIC FINDINGS. NEGATIVE FOR PROCTITIS. Electronically Signed Letty Clark M.D. Gross Description A. Received in formalin, labeled "biopsy random cecum" are 6 [place], irregular portions of soft tissue ranging from 0.2-0.5 cm. in greatest dimension. The specimens are submitted in toto in one cassette. B. Received in formalin, labeled "biopsy random right colon" are 4 [place], irregular portions of soft tissue ranging from 0.2-0.4 cm. in greatest dimension. The specimens are submitted in toto in one cassette. C. Received in formalin, labeled "biopsy random transverse colon" are 4 [place], irregular portions of soft tissue ranging from 0.3-0.4 cm. in greatest dimension. The specimens are submitted in toto in one cassette. D. Received in formalin, labeled "biopsy random left colon" are 3 [place], irregular portions of soft tissue ranging from 0.1-0.3 cm. in greatest dimension. The specimens are submitted in toto in one cassette. E. Received in formalin, labeled "biopsy random sigmoid colon" are 4 [place], irregular portions of soft tissue ranging from 0.3-0.4 cm. in greatest dimension. The specimens are submitted in toto in one cassette. F. Received in formalin, labeled "biopsy random rectosigmoid colon" are 5 [place], irregular portions of soft tissue ranging from 0.1-0.4 cm. in greatest dimension. The specimens are submitted in toto in one cassette. G. Received in formalin, labeled "biopsy random rectum" are 3 strick[place], irregular portions of soft tissue ranging from 0.1-0.8 cm. in greatest dimension. The specimens are submitted in toto in one cassette. 04/28/2019 [facility]04/28/2019
== END 2019-04-27 10:25 | disposition home or self-care (01) ==
LOC: FASU-ENDO 07:25
PROVIDERS: ATTEND Internal Medicine Gastroenterology
PROC: 0DBL8ZX Excision of Transverse Colon, Via Natural or Artificial Opening Endoscopic, Diagnostic (ICD-10-PCS; 2019-04-27)
PROC: 0DBN8ZX Excision of Sigmoid Colon, Via Natural or Artificial Opening Endoscopic, Diagnostic (ICD-10-PCS; 2019-04-27)
PROC: 0DBM8ZX Excision of Descending Colon, Via Natural or Artificial Opening Endoscopic, Diagnostic (ICD-10-PCS; 2019-04-27)
PROC: 0DBH8ZX Excision of Cecum, Via Natural or Artificial Opening Endoscopic, Diagnostic (ICD-10-PCS; 2019-04-27)
PROC: 0DBK8ZX Excision of Ascending Colon, Via Natural or Artificial Opening Endoscopic, Diagnostic (ICD-10-PCS; principal; 2019-04-27 09:00)
DX: Z87.19 Personal history of other diseases of the digestive system (principal); K57.30 Diverticulosis of large intestine without perforation or abscess without bleeding; K64.4 Residual hemorrhoidal skin tags
CPT/HCPCS: 88305-TC